=== PATIENT | male | born 1950 | race Native Hawaiian/Other Pacific Islander ===

== ENCOUNTER 2018-03-13 10:50 | Day surgery (SDC) | payer MEDICARE ==
[2018-03-13] MEDS ORDERED: Lidocaine PF 2% (5 ml) Inj (For Cardiac Arrhy) ONE (13:12)
[2018-03-13] MEDS ORDERED: Propofol 10 mg/ml Inj (20 ML) ONE (13:12)
[2018-03-13] MEDS ORDERED: Sodium Chloride 0.9% 1,000 ML IV SCH (14:00)
[2018-03-13 14:47] VITALS: BP 128/89; PULSE 63; RESP 16; TEMP 98.1; O2SAT 100
== END 2018-03-13 15:02 | disposition home or self-care (01) ==
LOC: ENDO 10:50
PROVIDERS: ATTEND Internal Medicine Gastroenterology
DX: K31.7 Polyp of stomach and duodenum (principal); K29.40 Chronic atrophic gastritis without bleeding; K29.80 Duodenitis without bleeding; R10.13 Epigastric pain
CPT/HCPCS: 43239; 88305; 88312; 88342; J2704; J7030; J7040